=== PATIENT | female | born 1995 | race Caucasian/White ===

== ENCOUNTER 2022-06-26 11:45 | Emergency (ER) | payer MEDICAID ==
[~2022-06-26] VITALS: Ht 170.2 cm; Wt 76.2 kg
--- NOTE | 2022-06-26 13:00 | NUR ---
26/F PRESENTS TO ED WITH C/O COUGH, CONGESTION, SORE THROAT AND HEADACHE X3 DAYS. STATES SON AND FAMILY SICK WITH SIMILARY SYMPTOMS. DENIES CP, SOB, N/V/D.
[2022-06-26] MEDS ORDERED: IBUP-2213 PO (13:08)
[2022-06-26] MEDS ORDERED: PROM118S5 PO (13:08)
--- NOTE | 2022-06-26 13:30 | NUR ---
Patient discharged with v/s stable. Written and verbal after care instructions ABOUT URI given and explained. Patient alert, oriented and verbalized understanding of instructions. Ambulatory with steady gait. All questions addressed prior to discharge. ID band removed. Patient advised to follow up with PMD. Rx of IBUPROFEN AND PROMETHAZINE-DM SYRUP given. Patient educated on indication of medication including possible reaction and side effects. Opportunity to ask questions provided and answered.
== END 2022-06-26 13:30 | disposition home or self-care (01) ==
LOC: MED 11:45
DX: J06.9 Acute upper respiratory infection, unspecified (principal); Z20.822 Contact with and (suspected) exposure to COVID-19; R51.9 Headache, unspecified; Z79.899 Other long term (current) drug therapy
CPT/HCPCS: 99283